=== PATIENT | female | born 1970 | race Caucasian/White ===

== ENCOUNTER 2020-10-09 16:30 | Emergency (ER) | payer OTHER, MEDICAID ==
[2020-10-09] MEDS ORDERED: PREDNISONE20 MG PO (17:16)
[2020-10-09] MEDS ORDERED: LACRILUBE OPTH3.5 GM OP (17:16)
[2020-10-09] MEDS ORDERED: VALTREX1000 MG PO (17:16)
== END 2020-10-09 17:24 | disposition home or self-care (01) ==
LOC: ER1 16:30
DX: G51.0 Bell's palsy (principal); F17.210 Nicotine dependence, cigarettes, uncomplicated; Z90.710 Acquired absence of both cervix and uterus; Z79.899 Other long term (current) drug therapy
CPT/HCPCS: 99283